=== PATIENT | female | born 1965 | race Caucasian/White ===

== ENCOUNTER 2017-12-21 10:12 | Emergency (ER) | payer BC ==
[2017-12-21] MEDS ORDERED: IBUPROFEN 800 MG TABLET PO ONE (10:34)
--- NOTE | 2017-12-21 10:36 | ER Document Report ---
ED Medical Screen (RME) - General Chief Complaint: Low Back Pain Stated Complaint: BACK PAIN Time Seen by Provider: 12/21/17 10:22 Mode of Arrival: Ambulatory Information source: Patient Notes: Patient reports having severe abdominal pain 2 days ago that has improved now and just feels like cramping typical of her menstrual cycle. Patient states that the severe pain has now settled to the lower back area. Patient denies any previous history of back problems. Patient denies any fever, radiculopathy or paresthesia. Patient does still complain of some abdominal pain but attributes this to muscle cramping. I have greeted and performed a rapid initial assessment of this patient. A comprehensive ED assessment and evaluation of the patient, analysis of test results and completion of the medical decision making process will be conducted by additional ED providers. TRAVEL OUTSIDE OF THE [place] IN LAST 30 DAYS: No - Related Data Allergies/Adverse Reactions: No Known Allergies Allergy (Verified 12/21/17 10:12) Physical Exam - Vital signs Vitals: Temp Pulse Resp BP Pulse Ox 99.7 F 83 20 171/94 H 100 12/21/17 10:14 12/21/17 10:14 12/21/17 10:14 12/21/17 10:14 12/21/17 10:14 - Abdominal Tenderness: Tender - Periumbilical - Back Back: Tender - Lumbar paraspinal Course - Vital Signs Vital signs: Temp Pulse Resp BP Pulse Ox 99.7 F 83 20 171/94 H 100 12/21/17 10:14 12/21/17 10:14 12/21/17 10:14 12/21/17 10:14 12/21/17 10:14
[2017-12-21 11:19] LABS: ABSOLUTE BASOPHILS # (AUTO) 0.1 10^3/uL (0.0-0.2); ABSOLUTE LYMPHOCYTES (AUTO) 2.4 10^3/uL (0.5-4.7); ABSOLUTE MONOCYTES (AUTO) 0.3 10^3/uL (0.1-1.4); BASOPHILS % (AUTO) 0.8 % (0-2); HEMATOCRIT 45.9 % (36.0-47.0); HEMOGLOBIN 15.6 g/dL (12.0-15.5); LYMPHOCYTES % (AUTO) 35.6 % (13-45); MEAN CORPUSCULAR HEMOGLOBIN 29.6 pg (27.0-33.4); MEAN CORPUSCULAR HGB CONC 34.1 g/dL (32.0-36.0); MEAN CORPUSCULAR VOLUME 87 fl (80-97); MONOCYTES % (AUTO) 3.9 % (3-13); PLATELET COUNT 331 10^3/uL (150-450); RED BLOOD COUNT 5.29 10^6/uL (3.72-5.28); SEGMENTED NEUTROPHILS % (AUTO) 59.7 % (42-78); TOTAL CELLS COUNTED % (AUTO) 100 %; WHITE BLOOD COUNT 6.7 10^3/uL (4.0-10.5)
[2017-12-21 11:32] LABS: APPEARANCE,URINE CLEAR; BILIRUBIN,URINE NEGATIVE (NEGATIVE); COLOR,URINE STRAW; GLUCOSE, URINE NEGATIVE (NEGATIVE); KETONES,URINE NEGATIVE (NEGATIVE); LEUKOCYTE ESTERASE,URINE NEGATIVE (NEGATIVE); NITRITE,URINE NEGATIVE (NEGATIVE); PROTEIN,URINE NEGATIVE (NEGATIVE); UROBILINOGEN,URINE NEGATIVE mg/dL (<2.0)
[2017-12-21 11:42] LABS: ANION GAP 13 (5-19); BLOOD UREA NITROGEN 10 mg/dL (7-20); CARBON DIOXIDE 23 mmol/L (22-30); CHLORIDE 108 mmol/L (98-107); GLUCOSE 102 mg/dL (75-110); POTASSIUM 4.7 mmol/L (3.6-5.0); SODIUM 143.7 mmol/L (137-145)
[2017-12-21 11:50] LABS: ADD MANUAL MICROSCOPIC YES
[2017-12-21 11:52] LABS: BACTERIA,URINE TRACE /HPF; HYALINE CASTS, URINE 0-1 /LPF
--- NOTE | 2017-12-21 12:53 | RADIOLOGY REPORT (SQ) ---
EXAM DESCRIPTION: U/S NON-OB PELVIS W/O DOP COMPLETED DATE/TIME: 12/21/2017 12:43 pm REASON FOR STUDY: menses brought on severe abd/back pain COMPARISON: None. TECHNIQUE: Dynamic and static grayscale images acquired of the pelvis via transabdominal approach an d recorded on PACS. Additional selected color Doppler and spectral images recorded. LIMITATIONS: None. FINDINGS: UTERUS: Contour normal. No mass. ENDOMETRIAL STRIPE: No focal or generalized thickening. No masses. CERVIX: No nabothian cysts. RIGHT OVARY AND DOPPLER: Normal size. No worrisome masses. Normal arterial vascular flow without evid ence for torsion. LEFT OVARY AND DOPPLER: Normal size. No worrisome masses. Normal arterial vascular flow without evide nce for torsion. FREE FLUID: None noted. OTHER: No other significant finding. MEASUREMENTS: UTERUS: 7.3 x 4.2 x 3.0 cm ENDOMETRIAL STRIPE: 6.5 mm RIGHT OVARY: 2.2 x 1.4 x 1.6 cm LEFT OVARY: Not visualized IMPRESSION: 1 The left ovary was not visualized sonographically. 2 Examination is otherwise unremarkable sonographically. TECHNICAL DOCUMENTATION: JOB ID: [id number] All Rights Reserved Rev-12/04 Reading location - IP/workstation name: [email or web address]
--- NOTE | 2017-12-21 13:01 | ER Document Report ---
ED General Pain - General Chief Complaint: Low Back Pain Stated Complaint: BACK PAIN Time Seen by Provider: 12/21/17 10:22 Mode of Arrival: Ambulatory Information source: Patient Notes: Patient is a 52-year-old female who presents to the ER today for lower abdominal pain after she started her menses a few days ago that has radiated to her low back. Patient states that it is now all across her low back "like a band." She denies any burning with urination, pain worse on one side or the other, injury, numbness or tingling. She states that she does not usually have heavy menstrual cycles and that they are usually regular. She has not started menopause yet. She is not on any control and has no history of uterine fibroids or other uterine abnormality. TRAVEL OUTSIDE OF THE [place] IN LAST 30 DAYS: No - Related Data Allergies/Adverse Reactions: No Known Allergies Allergy (Verified 12/21/17 10:12) Past Medical History - General Information source: Patient - Social History Smoking Status: Unknown if Ever Smoked Family History: Reviewed & Not Pertinent Patient has suicidal ideation: No Patient has homicidal ideation: No Renal/ Medical History: Denies: Hx Peritoneal Dialysis Review of Systems - Review of Systems Constitutional: No symptoms reported EENT: No symptoms reported Cardiovascular: No symptoms reported Respiratory: No symptoms reported Gastrointestinal: No symptoms reported Genitourinary: No symptoms reported Female Genitourinary: See HPI Musculoskeletal: No symptoms reported Skin: No symptoms reported Hematologic/Lymphatic: No symptoms reported Neurological/Psychological: No symptoms reported Physical Exam - Vital signs Vitals: Temp Pulse Resp BP Pulse Ox 99.7 F 83 20 171/94 H 100 12/21/17 10:14 12/21/17 10:14 12/21/17 10:14 12/21/17 10:14 12/21/17 10:14 - Notes Notes: PHYSICAL EXAMINATION: GENERAL: Tearful, uncomfortable, holding low back but in no acute distress. HEAD: Atraumatic, normocephalic. EYES: Pupils equal round and reactive to light, extraocular movements intact, sclera anicteric, conjunctiva are normal. NECK: Normal range of motion, supple without lymphadenopathy LUNGS: CTAB and equal. No wheezes rales or rhonchi. HEART: Regular rate and rhythm without murmurs ABDOMEN: Soft, no tenderness. No guarding, no rebound BACK: no vertebral tenderness, decreased range of motion secondary to pain of the low back GI/: no CVA tenderness EXTREMITIES: Normal range of motion, no pitting edema. No cyanosis. NEUROLOGICAL: Cranial nerves grossly intact. Normal sensory/motor exams. PSYCH: Normal mood, normal affect. SKIN: Warm, Dry, normal turgor, no rashes or lesions noted Course - Re-evaluation Re-evalutation: 12/21/17 12:59 Back is entirely nontender, ultrasound reports a normal uterus and no abnormality seen on the ovaries, urinalysis reveals large amount of blood but no sign of infection, lab work is otherwise unremarkable today. Will have patient follow up with [facility]NA[facility]EMENT [facility]NA[facility] and will send home with pain medication. - Vital Signs Vital signs: Temp Pulse Resp BP Pulse Ox 98.8 F 72 20 150/85 H 99 12/21/17 13:16 12/21/17 13:16 12/21/17 10:14 12/21/17 13:16 12/21/17 13:16 - Laboratory Result Diagrams: 12/21/17 10:51 12/21/17 10:51 Laboratory results interpreted by me: 12/21/17 12/21/17 12/21/17 10:51 10:51 10:52 RBC 5.29 H Hgb 15.6 H Chloride 108 H Urine Blood LARGE H Discharge - Discharge Clinical Impression: Menstrual abnormality Low back pain Qualifiers: Chronicity: acute Back pain laterality: bilateral Sciatica presence: without sciatica Qualified Code(s): M54.5 - Low back pain Condition: Stable Disposition: HOME, SELF-CARE Additional Instructions: Return immediately for any new or worsening symptoms. 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 Prescriptions: Hydrocodone/Acetaminophen [[place] 5-325 mg Tablet] 1 tab PO Q4 #15 tablet Referrals: [facility] [Provider Group] - Follow up as needed
[2017-12-21 13:16] VITALS: BP 150/85
== END 2017-12-21 13:19 | disposition home or self-care (01) ==
LOC: ER 10:12
DX: N92.6 Irregular menstruation, unspecified (principal); M54.5 Low back pain; R10.30 Lower abdominal pain, unspecified
CPT/HCPCS: 36415; 76856; 80048; 81001; 84703; 85025; 99284